=== PATIENT | male | born 1990 | race Caucasian/White ===

== ENCOUNTER 2021-06-22 07:57 | Outpatient (REF) | payer SELFPAY ==
[2021-06-22 08:58] LABS: Alanine Aminotransferase 20 U/L (0-40); Albumin Level 4.8 g/dL (3.5-5.0); Alkaline Phosphatase 66 U/L (39-117); Anion Gap 12 (12-20); Aspartate Amino Transferase 22 U/L (5-37); Bilirubin Total 2.7 mg/dL (0.0-1.0); Blood Urea Nitrogen 18 mg/dL (9-16); Calcium 9.9 mg/dL (8.4-10.2); Carbon Dioxide 30 mmol/L (22-29); Chloride 103 mmol/L (96-108); Cholesterol 166 mg/dL; Estimated Glomerular Filt Rate > 60; Glucose Fasting 95 mg/dL (60-99); HDL Cholesterol 66 mg/dL; LDL Cholesterol Calculated 92 mg/dl; Potassium 4.8 mmol/L (3.3-5.1); Sodium 140 mmol/L (135-145); Total Protein 7.2 g/dL (6.5-8.0); Triglycerides 41 mg/dL
[2021-06-22 09:21] LABS: TSH reflex Free T4 0.79 uIU/mL (0.32-4.0)
== END 2021-06-22 07:58 | disposition home or self-care (01) ==
LOC: HO.LAB 07:57
PROVIDERS: PCP Family Medicine; Visit Provider Family Medicine
DX: Z00.00 Encounter for general adult medical examination without abnormal findings (principal)
CPT/HCPCS: 36415; 80053; 80061; 84443

== ENCOUNTER 2022-05-26 12:59 | Outpatient (REF) | payer OTHER, SELFPAY ==
[2022-05-26 13:54] LABS: Alanine Aminotransferase 21 U/L (0-40); Albumin Level 4.7 g/dL (3.5-5.0); Alkaline Phosphatase 74 U/L (39-117); Anion Gap 13 (12-20); Aspartate Amino Transferase 19 U/L (5-37); Bilirubin Total 2.7 mg/dL (0.0-1.0); Blood Urea Nitrogen 13 mg/dL (9-16); Calcium 9.6 mg/dL (8.4-10.2); Carbon Dioxide 29 mmol/L (22-29); Chloride 103 mmol/L (96-108); Cholesterol 175 mg/dL; Estimated Glomerular Filt Rate > 60; Glucose Fasting 89 mg/dL (60-99); HDL Cholesterol 58 mg/dL; LDL Cholesterol Calculated 106 mg/dl; Sodium 141 mmol/L (135-145); Total Protein 6.9 g/dL (6.5-8.0); Triglycerides 59 mg/dL
[2022-05-26 14:09] LABS: TSH reflex Free T4 1.04 uIU/mL (0.32-4.0)
== END 2022-05-26 13:00 | disposition home or self-care (01) ==
LOC: HO.LAB 12:59
PROVIDERS: PCP Family Medicine; Visit Provider Family Medicine
DX: Z00.00 Encounter for general adult medical examination without abnormal findings (principal)
CPT/HCPCS: 36415; 80053; 80061; 84443; 86900; 86901

== ENCOUNTER 2022-10-25 16:23 | Outpatient (AMB) | payer OTHER, SELFPAY ==
--- NOTE | 2022-10-25 16:26 | MHC.PC.OV ---
Vital Signs 10/25/22 16:27 Height 5 ft 10 in Weight 165 lb BMI 23.7 BP 112/62 Blood Pressure Location Lt brachial Position Sitting Pulse 69 Pulse Source Pulse Oximeter Pulse Oximetry (%) 97 Oxygen Delivery Method Room Air Intake Visit Reasons: f/u ADHD Intake Note: Patient is here to follow up on ADHD, would like refills of meds today. He needs Vyvance. Allergies No Known Allergies Allergy (Verified 10/25/22 16:28) Tobacco use date assessed: 10/25/22 Dental Screening Dental Screen Date: 10/25/22 Did you have a dental visit in the last 12 months?: Yes Did you have a dental problem in the last 6 months where you did not have access to dental care?: No Was dental information given to patient?: Patient has dentist HPI f/u ADHD HPI Details 32 y/o male presents to f/u ADHD. He is requesting refills. Pt was on Adderall XR 30mg daily and states he was doing well with this but had been unable to get this from pharmacy. He had most recently been on Vyvanse which was costlier. [facility] Surgical History No pertinent past surgical history Family History Mother No problems noted. Father No problems noted. Social History Housing: House Patient Tobacco Use Status: Former Tobacco user e-Cigarette/Vaping Use: Never Used Second Hand Smoke Exposure: No service: No Current occupational status: employed Current occupational exposures/hazards: No Cognitive needs: No Hearing needs: No Vision needs: No Questionnaire Thrive Questionnaire Date Thrive assessed: 03/20/21 SHAREE-7 AMB Questionnaire SHAREE-7 Date SHAREE - 7 assessed: 07/02/21 Source: Developed by Drs. Brian Escobar, Kiara Marie, Rui Armijo and colleagues, with an educational jie from [employer]. Review of Systems Const Denies chills, Denies fatigue, Denies fever(s), Denies headache(s) and Denies weakness ENT Denies dizziness and Denies headache(s) Card Denies dyspnea Resp Denies cough, Denies dyspnea, Denies wheezing and Denies other (shortness of breath) Musc Denies numbness and Denies tingling Neuro Denies dizziness, Denies headache(s), Denies numbness, Denies tingling and Denies weakness Psych Denies anxiety and Denies depression Endo Denies fatigue Aller/Immun Denies wheezing Physical exam (Primary Care) Vital Signs: Last Vital Signs Pulse 69 10/25/22 16:27 BP 112/62 10/25/22 16:27 Pulse Ox 97 10/25/22 16:27 Oxygen Delivery Method Room Air 10/25/22 16:27 BMI result Body Mass Index 23.7 Tobacco/Smoking Status: Tobacco use Status Tobacco use date assessed 10/25/22 10/25/22 16:33 Patient Tobacco Use Status Former Tobacco user 10/25/22 16:33 e-Cigarette/Vaping Use Never Used 10/25/22 16:33 Thrive Assessment: Date of Thrive Assessment Date Thrive assessed 03/20/21 10/25/22 16:33 Const General: well developed; No acute distress Nutritional Appearance: well nourished Orientation/consciousness: patient oriented x3 HENMT Head: Yes normocephalic and Yes atraumatic Eyes General: appearance normal, both eyes and all related structures Pupils: Equal, round and reactive pupils present EOM: EOMs intact bilaterally Resp Effort & Inspection: normal respiratory effort Neuro General: patient oriented x3 and gait normal Cranial nerves: Yes Equal, round and reactive pupils present Psych Affect: normal affect Assessment and Plan Assessment & Plan (1) ADHD: Code(s): F90.9 - Attention-deficit hyperactivity disorder, unspecified type Plan: Patient was on Adderall XR 30 mg daily and was doing well with this but has not been able to get this from his pharmacy, so more recently he has been on Vyvanse which is much more expensive and does not work quite as well. We discussed that I will have my nurse see if we can find Adderall XR 30 mg or combination of formulations that equals this. If not will send Vyvanse and he can request a switch just prior to his next refill. Coding Level of Care Code Est Pt Level 3 (33316) Diagnoses ADHD F90.9
[2022-10-25 16:27] VITALS: BP 112/62; PULSE 69; O2SAT 97; BMI 23.7
== END 2022-10-25 17:01 | disposition home or self-care (01) ==
PROVIDERS: Visit Provider Family Medicine
DX: F90.9 Attention-deficit hyperactivity disorder, unspecified type (principal)
CPT/HCPCS: 99213

== ENCOUNTER 2023-01-24 16:34 | Outpatient (AMB) | payer OTHER, SELFPAY ==
--- NOTE | 2023-01-24 16:41 | A.OFFPC_ITS ---
Vital Signs 01/24/23 16:44 Height 5 ft 10 in Weight 162 lb BMI 23.2 BP 118/74 Blood Pressure Location Lt brachial Position Sitting Pulse 86 Pulse Source Pulse Oximeter Pulse Oximetry (%) 98 Oxygen Delivery Method Room Air Intake Visit Reasons: f/u ADHD Intake Note: Patient is here to follow up on ADHD. Allergies No Known Allergies Allergy (Verified 01/24/23 16:45) Tobacco use date assessed: 01/24/23 Dental Screening Dental Screen Date: 01/24/23 HPI f/u ADHD HPI Details 32 y/o male presents to f/u ADHD. He is on Adderall 30mg daily which has been working well. He denies any problems with difficulty sleeping, increased anxiety or appetite issues. [facility] Surgical History No pertinent past surgical history Family History Mother No problems noted. Father No problems noted. Housing: House Patient Tobacco Use Status: Former Tobacco user e-Cigarette/Vaping Use: Never Used Second Hand Smoke Exposure: No service: No Current occupational status: employed Current occupational exposures/hazards: No Cognitive needs: No Hearing needs: No Vision needs: No Questionnaire Thrive Questionnaire Date Thrive assessed: 03/20/21 SHAREE-7 AMB Questionnaire SHAREE-7 Date SHAREE - 7 assessed: 07/02/21 Source: Developed by Drs. Brian Escobar, Kiara Marie, Rui Armijo and colleagues, with an educational jie from [employer]. Review of Systems Const Denies chills, Denies fatigue, Denies fever(s), Denies headache(s) and Denies weakness ENT Denies dizziness and Denies headache(s) Card Denies dyspnea Resp Denies cough, Denies dyspnea, Denies wheezing and Denies other (shortness of breath) Musc Denies numbness and Denies tingling Neuro Denies dizziness, Denies headache(s), Denies numbness, Denies tingling and Denies weakness Psych Denies anxiety and Denies depression Endo Denies fatigue Aller/Immun Denies wheezing Physical exam (Primary Care) Vital Signs: Last Vital Signs Pulse 86 01/24/23 16:44 BP 118/74 01/24/23 16:44 Pulse Ox 98 01/24/23 16:44 Oxygen Delivery Method Room Air 01/24/23 16:44 BMI result Body Mass Index 23.2 Tobacco/Smoking Status: Tobacco use Status Tobacco use date assessed 01/24/23 01/24/23 16:47 Patient Tobacco Use Status Former Tobacco user 01/24/23 16:43 e-Cigarette/Vaping Use Never Used 01/24/23 16:43 Thrive Assessment: Date of Thrive Assessment Date Thrive assessed 03/20/21 01/24/23 16:43 Const General: well developed; No acute distress Nutritional Appearance: well nourished Orientation/consciousness: patient oriented x3 HENMT Head: Yes normocephalic and Yes atraumatic Eyes General: appearance normal, both eyes and all related structures Pupils: Equal, round and reactive pupils present EOM: EOMs intact bilaterally Resp Effort & Inspection: normal respiratory effort Auscultation: clear to auscultation bilaterally Cardio Rate: regular rate Rhythm: regular rhythm Heart sounds: S1 normal heart sound present, S2 normal heart sound present, no gallops, no murmurs and no rubs Neuro General: patient oriented x3 and gait normal Cranial nerves: Yes Equal, round and reactive pupils present Psych Affect: normal affect Assessment and Plan Assessment & Plan (1) ADHD: Code(s): F90.9 - Attention-deficit hyperactivity disorder, unspecified type Plan: Medication?remains?efficacious?and?no?adverse?effects Continue?current?medication Medications: Refilled dextroamphetamine-amphetamine 30 mg ER (Adderall XR) [facility] verified. Partial refill upon request. 30 mg PO DAILY 30 caps 0RF 30 days Coding Level of Care Code Est Pt Level 3 (46275) Diagnoses ADHD F90.9
[2023-01-24 16:44] VITALS: BP 118/74; PULSE 86; O2SAT 98; BMI 23.2
== END 2023-01-24 17:06 | disposition home or self-care (01) ==
PROVIDERS: PCP Family Medicine; Visit Provider Family Medicine
DX: F90.9 Attention-deficit hyperactivity disorder, unspecified type (principal)
CPT/HCPCS: 99213

== ENCOUNTER 2023-07-08 15:57 | Outpatient (AMB) | payer OTHER, SELFPAY ==
--- NOTE | 2023-07-08 15:09 | A.OFFPC_ITS ---
Vital Signs 07/08/23 16:01 Height 5 ft 10 in Weight 164 lb 8 oz BMI 23.6 BP 116/74 Blood Pressure Location Lt brachial Position Sitting Pulse 68 Pulse Source Pulse Oximeter Pulse Oximetry (%) 99 Oxygen Delivery Method Room Air Intake Visit Reasons: CPE with f/u labs and health maint. Intake Note: Patient is here for his physical today. Patient needs Adderall refill in a co uple of days. Allergies No Known Allergies Allergy (Verified 07/08/23 16:04) Tobacco use date assessed: 07/08/23 Dental Screening Dental Screen Date: 07/08/23 Did you have a dental visit in the last 12 months?: Yes Did you have a dental problem in the last 6 months where you did not have access to dental care?: No Was dental information given to patient?: Patient has dentist [facility] Surgical History No pertinent past surgical history Family History (Updated 07/08/23 @ 16:05 by Ernestine Warner CMA) Mother No problems noted. Father No problems noted. Social History Housing: House Patient Tobacco Use Status: Former Tobacco user e-Cigarette/Vaping Use: Never Used Second Hand Smoke Exposure: No service: No Current occupational status: employed Current occupational exposures/hazards: No Cognitive needs: No Hearing needs: No Vision needs: No Questionnaire PHQ-9 Over the last 2 weeks, how often have you been bothered by any of the following problems? 1. Little interest or pleasure in doing things: not at all 2. Feeling down, depressed, or hopeless: not at all 3. Trouble falling or staying asleep, or sleeping too much: not at all 4. Feeling tired or having little energy: not at all 5. Poor appetite or overeating: not at all 6. Feeling bad about yourself - or that you are a failure or have let yourself or your family down: not at all 7. Trouble concentrating on things, such as reading the newspaper or watching television: not at all 8. Moving or speaking so slowly that other people could have noticed. Or the opposite - being so fidgety or restless that you have been moving around a lot more than usual: not at all 9. Thoughts that you would be better off or of hurting yourself in some way: not at all Total score: 0 Depression Screening Interpretation: Negative Depression Screening Done: Yes 42475 - PHQ-9 Billing: Yes Source: Developed by Drs. Brian Escobar, Kiara Marie, Rui Armijo and colleagues, with an educational jie from [employer]. Thrive Questionnaire Date Thrive assessed: 07/08/23 I am a: Patient What is your living situation today?: I have a steady place to live Within the past 12 months, did the food you bought not last and you didn't have the money to get more?: Never true Within the past 12 months, did you worry whether your food would run out before you got money to buy more?: Never true Do you have trouble paying for medicines?: No Do you have trouble getting transportation to medical appointments?: No Do you have trouble paying your heating and electricity bill?: No Do you have trouble taking care of your child, family member or friend?: No Do you have trouble with day-to-day activities such as bathing, preparing meals, shopping, managing finances, etc.?: No Are you currently unemployed and looking for a job?: No Are you interested in more education?: No THRIVE Score: 0 AUDIT C Alcohol Use Questionnaire (AUDIT-C) 1. How often do you have a drink containing alcohol?: Monthly or less 2. How many drinks containing alcohol do you have on a typical day when you are drinking?: 1 or 2 3. How often do you have six or more drinks on one occasion?: Never Total Score: 1 SHAREE-7 AMB Questionnaire SHAREE-7 Date SHAREE - 7 assessed: 07/08/23 Feeling nervous, anxious, or on edge: 0 = Not at all Not being able to stop or control worryin = Not at all Worrying too much about different things: 0 = Not at all Trouble relaxin = Not at all Being so restless that it is hard to sit still: 0 = Not at all Becoming easily annoyed or irritable: 0 = Not at all Feeling afraid as if something awful might happen: 0 = Not at all Total SHAREE-7 score (0-4 normal; 5-9 mild; 10-14 moderate; 15-21 severe): 0 Source: Developed by Drs. Brian Escobar, Kiara Marie, Rui Armijo and colleagues, with an educational jie from [employer]. SHRAEE-7 Assessment Billing SHAREE-7 Assessment Tool: SHAREE-7 Assessment 83645 Physical exam (Primary Care) Vital Signs: Last Vital Signs Pulse 68 07/08/23 16:01 BP 116/74 07/08/23 16:01 Pulse Ox 99 07/08/23 16:01 Oxygen Delivery Method Room Air 07/08/23 16:01 BMI result Body Mass Index 23.6 Tobacco/Smoking Status: Tobacco use Status Tobacco use date assessed 07/08/23 07/08/23 16:12 Patient Tobacco Use Status Former Tobacco user 07/08/23 15:09 e-Cigarette/Vaping Use Never Used 07/08/23 15:09 PHQ-9: PHQ-9 Score PHQ-9: Total score 0 07/08/23 16:22 Depression Screening Interpretation: Negative Thrive Assessment: Date of Thrive Assessment Date Thrive assessed 07/08/23 07/08/23 16:12 Assessment and Plan Assessment & Plan (1) Adult general medical exam: Code(s): Z00.00 - Encounter for general adult medical examination without abnormal findings Plan: Well-appearing?32-year-old?male?presents?for?complete?physical?exam Encouraged?healthy?diet?with?active?lifestyle?and?plenty?of?exercise Has?not?had?any?recent?labs?this?year?but?we?reviewed?l abs?from?last?year.??No?concerns.??He?would?like?to?get?his?labs?drawn?next?year . (2) ADHD: Code(s): F90.9 - Attention-deficit hyperactivity disorder, unspecified type Plan: Medication?is?efficacious?and?he?has?no?adverse?effects?such?as?anxiety,?appetit e?suppression?or?sleep?disturbance. Continue?current?medication Coding Level of Care Code New Pt Prev Care 18-39yr(78191 Diagnoses Adult general medical exam Z00.00 ADHD F90.9 Additional Codes SHAREE-7 Assessment Billing - SHAREE-7 Assessment Tool: SHAREE-7 Assessment 44670 ([id number])
[2023-07-08 16:01] VITALS: BP 116/74; PULSE 68; O2SAT 99; BMI 23.6
== END 2023-07-08 16:34 | disposition home or self-care (01) ==
PROVIDERS: PCP Family Medicine; Visit Provider Family Medicine
DX: Z00.00 Encounter for general adult medical examination without abnormal findings (principal); F90.9 Attention-deficit hyperactivity disorder, unspecified type
CPT/HCPCS: 99395

== ENCOUNTER 2023-12-15 15:38 | Outpatient (AMB) | payer OTHER, SELFPAY ==
--- NOTE | 2023-12-15 15:42 | MHC.PC.OV ---
Vital Signs 12/15/23 15:44 Height 5 ft 10 in Weight 157 lb 8 oz BMI 22.6 BP 112/67 Blood Pressure Location Rt brachial Position Sitting Respiration 14 Pulse 89 Pulse Source Pulse Oximeter Temp 99.0 F Temp Source Temporal Artery Scan Pulse Oximetry (%) 97 Oxygen Delivery Method Room Air Intake Visit Reasons: f/u in about 4 months for ADHD Intake Note: f/u for adhd meds Allergies No Known Allergies Allergy (Verified 07/08/23 16:04) Medication List - Last Reconciled 12/15/23 by Roque Leos MD dextroamphetamine-amphetamine 30 mg ER (Adderall XR) 30 mg PO DAILY 30 days Tobacco use date assessed: 07/08/23 Dental Screening Dental Screen Date: 07/08/23 HPI f/u in about 4 months for ADHD HPI Details 33 y/o male presents to f/u ADHD. He is on Adderall 30mg daily. Denies any issues with sleep, appetite, increased anxiety. HPI Comments History of Present Illness Details Documentation assistance for Roque Leos MD, was provided by Fernando Solorzano, Retail District Manager on 12/15/2023 at 3:55 PM EST. I, Dr. Leos, have read, observed, and verified documentation. COUNTS INCLUDE 234 BEDS AT THE [facility] Surgical History No pertinent past surgical history Family History (Updated 07/08/23 @ 16:05 by Ernestine Warner CMA) Mother No problems noted. Father No problems noted. Social History Housing: House Patient Tobacco Use Status: Former Tobacco user e-Cigarette/Vaping Use: Never Used Second Hand Smoke Exposure: No service: No Current occupational status: employed Current occupational exposures/hazards: No Cognitive needs: No Hearing needs: No Vision needs: No Questionnaire PHQ-9 Over the last 2 weeks, how often have you been bothered by any of the following problems? 1. Little interest or pleasure in doing things: not at all 2. Feeling down, depressed, or hopeless: not at all 3. Trouble falling or staying asleep, or sleeping too much: not at all 4. Feeling tired or having little energy: not at all 5. Poor appetite or overeating: not at all 6. Feeling bad about yourself - or that you are a failure or have let yourself or your family down: not at all 7. Trouble concentrating on things, such as reading the newspaper or watching television: not at all 8. Moving or speaking so slowly that other people could have noticed. Or the opposite - being so fidgety or restless that you have been moving around a lot more than usual: not at all 9. Thoughts that you would be better off or of hurting yourself in some way: not at all Total score: 0 Depression Screening Interpretation: Negative Depression Screening Done: Yes [id number] - PHQ-9 Billing: Yes Source: Developed by Drs. Brian Escobar, Kiara Marie, Rui Armijo and colleagues, with an educational jie from [employer]. Thrive Questionnaire Date Thrive assessed: 07/08/23 AUDIT C Alcohol Use Questionnaire (AUDIT-C) 2. How many drinks containing alcohol do you have on a typical day when you are drinking?: 1 or 2 3. How often do you have six or more drinks on one occasion?: Never Total Score: 0 SHAREE-7 AMB Questionnaire SHAREE-7 Date SHAREE - 7 assessed: 12/15/23 Feeling nervous, anxious, or on edge: 0 = Not at all Not being able to stop or control worryin = Not at all Worrying too much about different things: 0 = Not at all Trouble relaxin = Not at all Being so restless that it is hard to sit still: 0 = Not at all Becoming easily annoyed or irritable: 0 = Not at all Feeling afraid as if something awful might happen: 0 = Not at all Total SHAREE-7 score (0-4 normal; 5-9 mild; 10-14 moderate; 15-21 severe): 0 Source: Developed by Drs. Brian Escobar, Kiara Marie, Rui Armijo and colleagues, with an educational jie from [employer]. SHAREE-7 Assessment Billing SHAREE-7 Assessment Tool: SHAREE-7 Assessment 59051 Review of Systems Const Denies chills, Denies fatigue, Denies fever(s), Denies headache(s) and Denies weakness ENT Denies dizziness and Denies headache(s) Card Denies dyspnea Resp Denies cough, Denies dyspnea, Denies wheezing and Denies other (shortness of breath) Musc Denies numbness and Denies tingling Neuro Denies dizziness, Denies headache(s), Denies numbness, Denies tingling and Denies weakness Psych Denies anxiety and Denies depression Endo Denies fatigue Aller/Immun Denies wheezing Physical exam (Primary Care) Vital Signs: Last Vital Signs Temp 99.0 F 12/15/23 15:44 Pulse 89 12/15/23 15:44 Resp 14 12/15/23 15:44 BP 112/67 12/15/23 15:44 Pulse Ox 97 12/15/23 15:44 Oxygen Delivery Method Room Air 12/15/23 15:44 BMI result Body Mass Index 22.6 Tobacco/Smoking Status: Tobacco use Status Tobacco use date assessed 07/08/23 12/15/23 15:47 Patient Tobacco Use Status Former Tobacco user 12/15/23 15:47 e-Cigarette/Vaping Use Never Used 12/15/23 15:47 PHQ-9: PHQ-9 Score PHQ-9: Total score 0 12/15/23 15:47 Depression Screening Interpretation: Negative Thrive Assessment: Date of Thrive Assessment Date Thrive assessed 07/08/23 12/15/23 15:47 Const General: well developed; No acute distress Nutritional Appearance: well nourished Orientation/consciousness: patient oriented x3 HENMT Head: Yes normocephalic and Yes atraumatic Eyes General: appearance normal, both eyes and all related structures Pupils: Equal, round and reactive pupils present EOM: EOMs intact bilaterally Resp Effort & Inspection: normal respiratory effort Auscultation: clear to auscultation bilaterally Cardio Rate: regular rate Rhythm: regular rhythm Heart sounds: S1 normal heart sound present, S2 normal heart sound present, no gallops, no murmurs and no rubs Neuro General: patient oriented x3 and gait normal Cranial nerves: Yes Equal, round and reactive pupils present Psych Affect: normal affect Coding Level of Care Code Est Pt Level 3 (55517) Diagnoses ADHD F90.9 Additional Codes SHAREE-7 Assessment Billing - SHAREE-7 Assessment Tool: SHAREE-7 Assessment 19744 ([id number]) Assessment & Plan Assessment & Plan (1) ADHD: Code(s): F90.9 - Attention-deficit hyperactivity disorder, unspecified type Category: Medical Plan: Patient?presents?to?follow-up?ADHD. Medication?is?efficacious.??He?says?that?the?dosing?is?in?the??sweet?spot?. No?problems?with?anxiety,?sleep?disturbance?or?appetite?problems. Will?continue?medication?as?prescribed. Will?check?random?urine?drug?screen.
[2023-12-15 15:44] VITALS: BP 112/67; PULSE 89; RESP 14; TEMP 37.2; O2SAT 97; BMI 22.6
== END 2023-12-15 16:01 | disposition home or self-care (01) ==
LOC: HO.HMCFM 15:38
PROVIDERS: PCP Family Medicine; Visit Provider Family Medicine
DX: F90.9 Attention-deficit hyperactivity disorder, unspecified type (principal)

== ENCOUNTER 2024-04-19 15:37 | Outpatient (AMB) | payer OTHER, SELFPAY ==
--- NOTE | 2024-04-19 15:41 | A.OFFPC_ITS ---
Vital Signs 04/19/24 15:43 Height 5 ft 10 in Weight 156 lb 8 oz BMI 22.5 BP 110/60 Blood Pressure Location Lt brachial Position Sitting Respiration 12 Pulse 83 Pulse Source Pulse Oximeter Temp 98.0 F Temp Source Oral Pulse Oximetry (%) 98 Oxygen Delivery Method Room Air Intake Visit Reasons: f/u ADHD Intake Note: f/u for adhd Financial Retirement Plan Specialist Required: No Allergies No Known Allergies Allergy (Verified 04/19/24 15:42) Tobacco use date assessed: 07/08/23 Dental Screening Dental Screen Date: 07/08/23 HPI f/u ADHD HPI Details 33 y/o male presents to f/u ADHD. He is on Adderall 30mg daily. Denies any increased anxiety, appetite issues, sleep problems. Weight is steady. [facility] Surgical History No pertinent past surgical history Family History (Updated 07/08/23 @ 16:05 by Ernestine Warner CMA) Mother No problems noted. Father No problems noted. Social History Housing: House Patient Tobacco Use Status: Former Tobacco user e-Cigarette/Vaping Use: Never Used Second Hand Smoke Exposure: No service: No Current occupational status: employed Current occupational exposures/hazards: No Cognitive needs: No Hearing needs: No Vision needs: No Questionnaire PHQ-9 Over the last 2 weeks, how often have you been bothered by any of the following problems? 1. Little interest or pleasure in doing things: not at all 2. Feeling down, depressed, or hopeless: not at all 3. Trouble falling or staying asleep, or sleeping too much: not at all 4. Feeling tired or having little energy: not at all 5. Poor appetite or overeating: not at all 6. Feeling bad about yourself - or that you are a failure or have let yourself or your family down: not at all 7. Trouble concentrating on things, such as reading the newspaper or watching television: not at all 8. Moving or speaking so slowly that other people could have noticed. Or the opposite - being so fidgety or restless that you have been moving around a lot more than usual: not at all 9. Thoughts that you would be better off or of hurting yourself in some way: not at all Total score: 0 Source: Developed by Drs. Brian Escobar, Kiara Marie, Rui Armijo and colleagues, with an educational jie from [employer]. Thrive Questionnaire Date Thrive assessed: 07/08/23 I am a: Patient What is your living situation today?: I have a steady place to live Within the past 12 months, did the food you bought not last and you didn't have the money to get more?: Never true Within the past 12 months, did you worry whether your food would run out before you got money to buy more?: Never true Do you have trouble paying for medicines?: No Do you have trouble getting transportation to medical appointments?: No Do you have trouble paying your heating and electricity bill?: No Do you have trouble taking care of your child, family member or friend?: No Do you have trouble with day-to-day activities such as bathing, preparing meals, shopping, managing finances, etc.?: No Are you currently unemployed and looking for a job?: No Are you interested in more education?: No Please select the resources that you would like help with: None Currently or been in a relationship where the following occur: No concerns reported THRIVE Score: 0 AUDIT C Alcohol Use Questionnaire (AUDIT-C) 1. How often do you have a drink containing alcohol?: 2-4 times a month 2. How many drinks containing alcohol do you have on a typical day when you are drinking?: 1 or 2 3. How often do you have six or more drinks on one occasion?: Never Total Score: 2 SHAREE-7 AMB Questionnaire SHAREE-7 Date SHAREE - 7 assessed: 12/15/23 Feeling nervous, anxious, or on edge: 0 = Not at all Not being able to stop or control worryin = Not at all Worrying too much about different things: 0 = Not at all Trouble relaxin = Not at all Being so restless that it is hard to sit still: 0 = Not at all Becoming easily annoyed or irritable: 0 = Not at all Feeling afraid as if something awful might happen: 0 = Not at all Total SHAREE-7 score (0-4 normal; 5-9 mild; 10-14 moderate; 15-21 severe): 0 Source: Developed by Drs. Brian Escobar, Kiara Marie, Rui Armijo and colleagues, with an educational jie from [employer]. Review of Systems Const Denies chills, Denies fatigue, Denies fever(s), Denies headache(s) and Denies weakness ENT Denies dizziness and Denies headache(s) Card Denies chest pain, Denies lightheadedness, Denies dyspnea and Denies other (Palpitations) Resp Denies cough, Denies dyspnea, Denies wheezing and Denies other ( shortness of breath) Musc Denies numbness and Denies tingling Neuro Denies dizziness, Denies headache(s), Denies numbness, Denies tingling, Denies paresthesias and Denies weakness Psych Denies anxiety and Denies depression Endo Denies fatigue Aller/Immun Denies wheezing Physical exam (Primary Care) Vital Signs: Last Vital Signs Temp 98.0 F 04/19/24 15:43 Pulse 83 04/19/24 15:43 Resp 12 04/19/24 15:43 BP 110/60 04/19/24 15:43 Pulse Ox 98 04/19/24 15:43 Oxygen Delivery Method Room Air 04/19/24 15:43 BMI result Body Mass Index 22.5 Tobacco/Smoking Status: Tobacco use Status Tobacco use date assessed 07/08/23 04/19/24 15:46 Patient Tobacco Use Status Former Tobacco user 04/19/24 15:46 e-Cigarette/Vaping Use Never Used 04/19/24 15:46 PHQ-9: PHQ-9 Score PHQ-9: Total score 0 04/19/24 15:46 Thrive Assessment: Date of Thrive Assessment Date Thrive assessed 07/08/23 04/19/24 15:46 Currently or been in a relationship where the following occur: No concerns reported Const General: no acute distress and well developed Nutritional Appearance: well nourished Orientation/consciousness: patient oriented x3 HENMT Head: Yes normocephalic and Yes atraumatic Eyes General: appearance normal, both eyes and all related structures Pupils: Equal, round and reactive pupils present EOM: EOMs intact bilaterally Resp Effort & Inspection: normal respiratory effort Auscultation: clear to auscultation bilaterally Cardio Rate: regular rate Rhythm: regular rhythm Heart sounds: S1 normal heart sound present, S2 normal heart sound present, no gallops, no murmurs and no rubs Neuro General: patient oriented x3 and gait normal Cranial nerves: Yes Equal, round and reactive pupils present Psych Affect: normal affect Coding Level of Care Code Est Pt Level 3 (53786) Diagnoses ADHD F90.9 Assessment & Plan Assessment & Plan (1) ADHD: Code(s): F90.9 - Attention-deficit hyperactivity disorder, unspecified type Category: Medical Plan: Patient?is?taking?Adderall?XR?30?mg?daily. Medication?is?effective No?adverse?effects?such?as?sleep?appetite?or?mood?disturbances. Continue?current?medication Patient?had?random?drug?screen?at?last?visit?which?was?appropriate/as?expected. Orders: Orders Basic Metabolic Panel Today Z00.00 - Encounter for general adult medical examination without abnormal findings
[2024-04-19 15:43] VITALS: BP 110/60; PULSE 83; RESP 12; TEMP 36.7; O2SAT 98; BMI 22.5
== END 2024-04-19 16:15 | disposition home or self-care (01) ==
PROVIDERS: PCP Family Medicine; Visit Provider Family Medicine
DX: F90.9 Attention-deficit hyperactivity disorder, unspecified type (principal)

== ENCOUNTER → 2024-04-19 15:37 | Outpatient (BNVA) | payer OTHER, SELFPAY | PROVIDERS: PCP Family Medicine; Visit Provider Family Medicine ==

== ENCOUNTER 2024-08-17 16:20 | Outpatient (AMB) | payer OTHER, SELFPAY ==
--- NOTE | 2024-08-17 16:22 | A.OFFPC_ITS ---
Vital Signs 08/17/24 16:26 Height 5 ft 10 in Weight 155 lb 4 oz BMI 22.3 BP 120/70 Blood Pressure Location Rt brachial Position Sitting Respiration 16 Pulse 68 Pulse Source Pulse Oximeter Temp 98.2 F Temp Source Oral Pulse Oximetry (%) 98 Oxygen Delivery Method Room Air Intake Visit Reasons: f/u ADHD Intake Note: patient is scheduled to follow up on adhd Manager Product Management Required: No Allergies No Known Allergies Allergy (Verified 08/17/24 16:25) Tobacco use date assessed: 07/08/23 Dental Screening Dental Screen Date: 07/08/23 HPI f/u ADHD HPI Details 33 y/o male presents to f/u ADHD. Also here for a physical. He is on Adderall 30mg daily. Denies any issues with his meds. No recent labs to review. HPI Comments History of Present Illness Details Documentation assistance for Roque Leos MD, was provided by Fernando Solorzano,? Dance Studio Manager on 08/17/2024 at 4:37 PM EST. I, Dr. Leos, have read, observed, and verified documentation. ? PFSH Surgical History No pertinent past surgical history Family History (Updated 07/08/23 @ 16:05 by Ernestine Warner CMA) Mother No problems noted. Father No problems noted. Social History Housing: House Patient Tobacco Use Status: Former Tobacco user e-Cigarette/Vaping Use: Never Used Second Hand Smoke Exposure: No service: No Current occupational status: employed Current occupational exposures/hazards: No Cognitive needs: No Hearing needs: No Vision needs: No Questionnaire Thrive Questionnaire Date Thrive assessed: 04/19/24 I am a: Patient What is your living situation today?: I have a steady place to live Within the past 12 months, did the food you bought not last and you didn't have the money to get more?: Never true Within the past 12 months, did you worry whether your food would run out before you got money to buy more?: Never true Do you have trouble paying for medicines?: No Do you have trouble getting transportation to medical appointments?: No Do you have trouble paying your heating and electricity bill?: No Do you have trouble taking care of your child, family member or friend?: No Do you have trouble with day-to-day activities such as bathing, preparing meals, shopping, managing finances, etc.?: No Are you currently unemployed and looking for a job?: No Are you interested in more education?: No Please select the resources that you would like help with: None Currently or been in a relationship where the following occur: No concerns reported THRIVE Score: 0 SHAREE-7 AMB Questionnaire SHAREE-7 Date SHAREE - 7 assessed: 12/15/23 Source: Developed by Drs. Brian Escobar, Kiara Marie, Rui Armijo and colleagues, with an educational jie from [employer]. Review of Systems Const Denies chills, Denies fatigue, Denies fever(s), Denies headache(s) and Denies weakness Eyes Denies change in vision ENT Denies dizziness, Denies headache(s), Denies hearing loss, Denies nasal congestion, Denies sinus pain, Denies sinus pressure and Denies sore throat Card Denies chest pain, Denies lightheadedness, Denies dyspnea and Denies other (palpitations) Resp Denies cough, Denies dyspnea and Denies wheezing GI Denies abdominal pain, Denies melena, Denies hematochezia, Denies change in bowel habits, Denies dyspepsia and Denies nausea Denies hematuria and Denies dysuria Musc Denies abnormal gait, Denies myalgias, Denies arthralgias, Denies numbness and Denies tingling Skin/Breast Denies rash, Denies unusual bruising and Denies wounds Neuro Denies abnormal gait, Denies dizziness, Denies headache(s), Denies memory loss, Denies numbness, Denies Sensory deficit (Neuro), Denies tingling and Denies weakness Psych Denies anxiety, Denies depression and Denies memory loss Endo Denies cold intolerance, Denies fatigue, Denies heat intolerance, Denies polydipsia and Denies polyuria Taqueria/Lymph Denies easy bleeding and Denies easy bruising Aller/Immun Denies wheezing Physical exam (Primary Care) Vital Signs: Last Vital Signs Temp 98.2 F 08/17/24 16:26 Pulse 68 08/17/24 16:26 Resp 16 08/17/24 16:26 BP 120/70 08/17/24 16:26 Pulse Ox 98 08/17/24 16:26 Oxygen Delivery Method Room Air 08/17/24 16:26 BMI result Body Mass Index 22.3 Tobacco/Smoking Status: Tobacco use Status Tobacco use date assessed 07/08/23 08/17/24 16:23 Patient Tobacco Use Status Former Tobacco user 08/17/24 16:23 e-Cigarette/Vaping Use Never Used 08/17/24 16:23 Thrive Assessment: Date of Thrive Assessment Date Thrive assessed 04/19/24 08/17/24 16:23 Currently or been in a relationship where the following occur: No concerns reported Const General: no acute distress, well developed, alert and awake Nutritional Appearance: well nourished Orientation/consciousness: patient oriented x3 HENMT Head: Yes normocephalic and Yes atraumatic Ears: hearing grossly normal bilaterally and TM's normal bilaterally General nose exam: Normal external nose present and Normal nares present Mouth: Normal oral and palatal mucosa present and moist mucous membranes Teeth and gingiva: dentition normal Throat: Yes posterior oropharynx normal Eyes General: appearance normal, both eyes and all related structures Pupils: Equal, round and reactive pupils present and Pupil accommodation reflex normal EOM: EOMs intact bilaterally Neck Neck: Yes normal visual inspection, Yes no lymphadenopathy and Yes trachea midline Thyroid: Thyroid normal Carotids: no bruits Lymphatic: no lymphadenopathy noted Chest Chest palpation & inspection: normal inspection of the chest Resp Effort & Inspection: normal respiratory effort Auscultation: clear to auscultation bilaterally Cardio Rate: regular rate Rhythm: regular rhythm Heart sounds: S1 normal heart sound present, S2 normal heart sound present, no gallops, no murmurs and no rubs Bruits: no abdominal aortic bruits and no carotid bruits GI Palpation (GI): No Abdominal aortic bruit present, Soft to palpation, nontender, No hepatosplenomegaly present and No Rebound tenderness present Auscultation: normal bowel sounds General: Yes no CVA tenderness Back/Spine/Pelvis Back: no CVA tenderness Cervical Spine: cervical ROM normal and No Cervical spine tenderness Thoracic/Lumbar Spine: thoraco-lumbar ROM normal, No pain with thoraco-lumbar ROM, No thoracic spinal tenderness and No lumbar spinal tenderness Skin Lesions: no lesions Rashes: no rashes Trauma: no lacerations or abrasions Wounds: no wounds Nails: normal Neuro General: patient oriented x3 Cranial nerves: Yes Equal, round and reactive pupils present Cognition (Neuro): normal cognition Gait exam (Neuro): Normal gait present Motor exam (neuro): 5/5 motor strength present throughout Sensory Exam: No Sensory deficit (Neuro) Deep tendon reflexes (DTR's): Right patellar reflex intensity grade: 2+ and Left patellar reflex intensity grade: 2+ Extrem General: Yes normal to inspection and No edema Psych Appearance: grossly normal Affect: normal affect Attitude: cooperative Thought process: Normal thought process present Coding Level of Care Code Est Pt Level 3 (61633) Est Pt Prev Care 18-39y(30829) Diagnoses Adult general medical exam Z00.00 ADHD F90.9 Assessment & Plan Assessment & Plan (1) Adult general medical exam: Code(s): Z00.00 - Encounter for general adult medical examination without abnormal findings Category: Medical Plan: 33-year-old?male?presents?for?complete?physical?exam Exam?within?normal?limits Encouraged?healthy?diet?with?active?lifestyle?and?plenty?of?exercise (2) ADHD: Code(s): F90.9 - Attention-deficit hyperactivity disorder, unspecified type Category: Medical Plan: Patient?is?taking?medication?as?prescribed?and?this?is?helping No?increased?anxiety,?worsened?sleep?or?worsened?appetite?from?medication Continue?as?prescribed
[2024-08-17 16:26] VITALS: BP 120/70; PULSE 68; RESP 16; TEMP 36.8; O2SAT 98; BMI 22.3
== END 2024-08-17 16:44 | disposition home or self-care (01) ==
PROVIDERS: PCP Family Medicine; Visit Provider Family Medicine
DX: Z00.00 Encounter for general adult medical examination without abnormal findings (principal); F90.9 Attention-deficit hyperactivity disorder, unspecified type

== ENCOUNTER → 2024-08-17 16:20 | Outpatient (BNVA) | payer OTHER, SELFPAY | PROVIDERS: PCP Family Medicine; Visit Provider Family Medicine ==

== ENCOUNTER 2024-09-12 08:09 | Outpatient (REF) | payer OTHER, SELFPAY ==
[2024-09-12 09:18] LABS: Alanine Aminotransferase 34 U/L (0-40); Albumin Level 4.8 g/dL (3.5-5.0); Alkaline Phosphatase 65 U/L (39-117); Anion Gap 9 (12-20); Aspartate Amino Transferase 22 U/L (5-37); Blood Urea Nitrogen 20 mg/dL (9-16); Calcium 9.1 mg/dL (8.4-10.2); Carbon Dioxide 29 mmol/L (22-29); Chloride 108 mmol/L (96-108); Cholesterol 156 mg/dL (<200); Estimated Glomerular Filt Rate > 60; HDL Cholesterol 60 mg/dL (>40); Potassium 4.5 mmol/L (3.3-5.1); Sodium 141 mmol/L (135-145); Total Protein 7.1 g/dL (6.5-8.0); Triglycerides 40 mg/dL (<150)
[2024-09-12 10:17] LABS: Appearance Urine Clear; Glucose Urine UA Negative (Negative); PH 7.0 (5.0-9.0); Specific Gravity - Urine <= 1.005 (1.005-1.025)
== END 2024-09-12 08:10 | disposition home or self-care (01) ==
LOC: HO.LAB 08:09
PROVIDERS: PCP Family Medicine; Visit Provider Family Medicine
DX: Z00.00 Encounter for general adult medical examination without abnormal findings (principal)
CPT/HCPCS: 36415; 80053; 80061; 81003; 84443

== ENCOUNTER 2025-01-04 15:26 | Outpatient (AMB) | payer OTHER, SELFPAY ==
--- NOTE | 2025-01-04 15:40 | A.OFFPC_ITS ---
Vital Signs 01/04/25 15:43 Height 5 ft 10 in Weight 158 lb 4 oz BMI 22.7 BP 120/70 Blood Pressure Location Lt brachial Position Sitting Respiration 16 Pulse 61 Pulse Source Pulse Oximeter Temp 98.0 F Temp Source Oral Pulse Oximetry (%) 98 Oxygen Delivery Method Room Air Intake Visit Reasons: F/U ADHD Intake Note: patient is scheduled to follow up for adhd Account Services Associate Required: No Allergies No Known Allergies Allergy (Verified 01/04/25 15:42) Medication List - Last Reconciled 01/04/25 by Roque Leos MD dextroamphetamine-amphetamine 30 mg ER (Adderall XR) 30 mg PO DAILY 30 days Tobacco use date assessed: 07/08/23 Dental Screening Dental Screen Date: 07/08/23 HPI F/U ADHD HPI Details Patient presents to follow-up ADHD He is taking Adderall XR 30 mg daily. He notes that this seems to be ?the sweet spot and it has been working for him for quite some time. Denies any changes in appetite, no anxiety and no difficulty with sleep. No other complaints. [facility] Surgical History No pertinent past surgical history Family History (Updated 07/08/23 @ 16:05 by Ernestine Warner CMA) Mother No problems noted. Father No problems noted. Social History Housing: House Patient Tobacco Use Status: Former Tobacco user e-Cigarette/Vaping Use: Never Used Second Hand Smoke Exposure: No service: No Current occupational status: employed Current occupational exposures/hazards: No Cognitive needs: No Hearing needs: No Vision needs: No Questionnaire PHQ-9 Over the last 2 weeks, how often have you been bothered by any of the following problems? 1. Little interest or pleasure in doing things: not at all 2. Feeling down, depressed, or hopeless: not at all 3. Trouble falling or staying asleep, or sleeping too much: not at all 4. Feeling tired or having little energy: not at all 5. Poor appetite or overeating: not at all 6. Feeling bad about yourself - or that you are a failure or have let yourself or your family down: not at all 7. Trouble concentrating on things, such as reading the newspaper or watching television: not at all 8. Moving or speaking so slowly that other people could have noticed. Or the opposite - being so fidgety or restless that you have been moving around a lot more than usual: not at all 9. Thoughts that you would be better off or of hurting yourself in some way: not at all Total score: 0 Depression Screening Interpretation: Negative Depression Screening Done: Yes 32116 - PHQ-9 Billing: Yes Source: Developed by Drs. Brian Escobar, Kiara Marie, Rui Armijo and colleagues, with an educational jie from [employer]. Thrive Questionnaire Date Thrive assessed: 04/19/24 I am a: Patient What is your living situation today?: I have a steady place to live Within the past 12 months, did the food you bought not last and you didn't have the money to get more?: Never true Within the past 12 months, did you worry whether your food would run out before you got money to buy more?: Never true Do you have trouble paying for medicines?: No Do you have trouble getting transportation to medical appointments?: No Do you have trouble paying your heating and electricity bill?: No Do you have trouble taking care of your child, family member or friend?: No Do you have trouble with day-to-day activities such as bathing, preparing meals, shopping, managing finances, etc.?: No Are you currently unemployed and looking for a job?: No Are you interested in more education?: No Please select the resources that you would like help with: None Currently or been in a relationship where the following occur: No concerns reported THRIVE Score: 0 SHAREE-7 AMB Questionnaire SHAREE-7 Date SHAREE - 7 assessed: 01/04/25 Feeling nervous, anxious, or on edge: 0 = Not at all Not being able to stop or control worryin = Not at all Worrying too much about different things: 0 = Not at all Trouble relaxin = Not at all Being so restless that it is hard to sit still: 0 = Not at all Becoming easily annoyed or irritable: 0 = Not at all Feeling afraid as if something awful might happen: 0 = Not at all Total SHAREE-7 score (0-4 normal; 5-9 mild; 10-14 moderate; 15-21 severe): 0 Source: Developed by Drs. Brian Escobar, Kiara Marie, Rui Armijo and colleagues, with an educational jie from [employer]. SHAREE-7 Assessment Billing SHAREE-7 Assessment Tool: SHAREE-7 Assessment 45261 Review of Systems Const Denies chills, Denies fatigue, Denies fever(s), Denies headache(s) and Denies weakness ENT Denies dizziness and Denies headache(s) Card Denies chest pain, Denies lightheadedness, Denies dyspnea and Denies other (Palpitations) Resp Denies cough, Denies dyspnea, Denies wheezing and Denies other ( shortness of breath) Musc Denies numbness and Denies tingling Neuro Denies dizziness, Denies headache(s), Denies numbness, Denies tingling, Denies paresthesias and Denies weakness Psych Denies anxiety and Denies depression Endo Denies fatigue Aller/Immun Denies wheezing Physical exam (Primary Care) Vital Signs: Last Vital Signs Temp 98.0 F 01/04/25 15:43 Pulse 61 01/04/25 15:43 Resp 16 01/04/25 15:43 BP 120/70 01/04/25 15:43 Pulse Ox 98 01/04/25 15:43 Oxygen Delivery Method Room Air 01/04/25 15:43 BMI result Body Mass Index 22.7 Tobacco/Smoking Status: Tobacco use Status Tobacco use date assessed 07/08/23 01/04/25 15:46 Patient Tobacco Use Status Former Tobacco user 01/04/25 15:46 e-Cigarette/Vaping Use Never Used 01/04/25 15:46 PHQ-9: PHQ-9 Score PHQ-9: Total score 0 01/04/25 15:46 Depression Screening Interpretation: Negative Thrive Assessment: Date of Thrive Assessment Date Thrive assessed 04/19/24 01/04/25 15:46 Currently or been in a relationship where the following occur: No concerns reported Const General: no acute distress and well developed Nutritional Appearance: well nourished Orientation/consciousness: patient oriented x3 HENMT Head: Yes normocephalic and Yes atraumatic Eyes General: appearance normal, both eyes and all related structures Pupils: Equal, round and reactive pupils present EOM: EOMs intact bilaterally Resp Effort & Inspection: normal respiratory effort Auscultation: clear to auscultation bilaterally Cardio Rate: regular rate Rhythm: regular rhythm Heart sounds: S1 normal heart sound present, S2 normal heart sound present, no gallops, no murmurs and no rubs Neuro General: patient oriented x3 and gait normal Cranial nerves: Yes Equal, round and reactive pupils present Psych Affect: normal affect Coding Level of Care Code Est Pt Level 3 (18733) Diagnoses ADHD F90.9 Additional Codes SHAREE-7 Assessment Billing - SHAREE-7 Assessment Tool: SHAREE-7 Assessment 68297 ([id number]) PHQ-9 - 99272 - PHQ-9 Billing: Yes ([id number]) Assessment & Plan Assessment & Plan (1) ADHD: Code(s): F90.9 - Attention-deficit hyperactivity disorder, unspecified type Category: Medical Plan: Medication remains efficacious at current dose. No problems with appetite, sleep or anxiety No other problems with his medication and patient feels well. Continue current medication Orders: Orders Comprehensive [place]. Panel Fast Today Z00.00 - Encounter for general adult medical examination without abnormal findings Complete Blood Count Auto Diff Today Z00.00 - Encounter for general adult medical examination without abnormal findings Lipid Panel Today Z00.00 - Encounter for general adult medical examination without abnormal findings Microalbumin, Random (w Creat) Today I10 - Essential (primary) hypertension, Z00.00 - Encounter for general adult medical examination without abnormal findings TSH reflex Free T4 Today Z00.00 - Encounter for general adult medical examination without abnormal findings UA CC w/rflx Micro + Cult Today Z00.00 - Encounter for general adult medical examination without abnormal findings Medications: Ref[facility]amphetamine[facility] upon request. 30 mg PO DAILY 30 caps 0RF 30 days Z00.00 - Encounter for general adult medical examination without abnormal findings
[2025-01-04 15:43] VITALS: BP 120/70; PULSE 61; RESP 16; TEMP 36.7; O2SAT 98; BMI 22.7
--- OUTSIDE RECORDS SUMMARY | 2025-01-04 16:33 | XMS_ITS | Clinical Summary ---
Author Organization [facility] Address [address] [place] [id number] Phone Care Team Providers Care Scholastic Aptitude Test Grader Name Role Phone Pcp, Unknown Primary Care Provider Unavailabl e Social History Tobacco Use Types Packs/Day Years Used Date Smoking Tobacco: Never Assessed Education Answer Date Recorded Are you interested in more education? Not on ze e 06/26/2022 Are you concerned about learning? Not on file 06/26/2022 No 06/26/2022 No 06/26/2022 Digital Access Answer Date Recorded No 07/25/2022 No 07/25/2022 No 07/25/2022 Reliable internet access at home? Not on file 07/25/2022 Device with a working camera? Not on file Sex and Gender Information Value Date Recorded Sex Assigned at Not on file Legal Sex Male 2:22 PM EDT Gender Identity Not on file Sexual Orientation Not on file Plan of Treatment Health Maintenance Due Date Last Done Comments Adult Td,Tdap Booster 1991 DEPRESSION SCREENING 2003 SMOKING Hx and SMOKELESS TOB ACCO SCREENING 09/03/2004 HEPATITIS C SCREENING 09/03/2009 HIV ONE-TIME SCREENING (18-6 5 YEARS) 09/03/2009 INFLUENZA VACCINE (#1) 2024 COVID-19 VACCINE (2024-2 6 season) 2024 HEPATITIS A VACCINES Aged Out No long er eligible based on patient's age to complete this topic HIB VACCINES Aged Out No longer eligi ble based on patient's age to complete this topic MENINGOCOCCAL VACCINES (ACWY) Aged Out No longer eligible based on patient's age to complete this topic MENINGOCOCCAL VACCINES (B) Aged Out N o longer eligible based on patient's age to complete this topic PNEUMOCOCCAL VACCINES (0-49 years) Aged Out No longer eligible based on patient's age to complete this topic Medical Devices Not on file Insurance AETNA ASA GEHA AET[place] [id number] [place] [id number] [place] [id number] AETNA ASA GEHA JUVEALLYSON [id number] [place] [id number] AETNA ASA GEHA JUVEALLYSON [id number] AETNA ASA GEHA [place]YS[place] [id number] Care Teams Scholastic Aptitude Test Grader Relationship Specialty Start Date End Date Pcp, Unknown PCP - General 12/22/21 Additional Source Comments The information contained in this document represents components of the legal health record. It is not the complete legal health record.[facility]
== END 2025-01-04 15:56 | disposition home or self-care (01) ==
LOC: HO.HMCFM 15:26
PROVIDERS: PCP Family Medicine; Visit Provider Family Medicine
DX: F90.9 Attention-deficit hyperactivity disorder, unspecified type (principal)

== ENCOUNTER → 2025-01-04 15:26 | Outpatient (BNVA) | payer OTHER, SELFPAY | PROVIDERS: PCP Family Medicine; Visit Provider Family Medicine | DX: I10 Essential (primary) hypertension (principal); F90.9 Attention-deficit hyperactivity disorder, unspecified type | CPT/HCPCS: 96127 ==